=== PATIENT | female | born 1995 | race Two or more races ===

== ENCOUNTER 2019-03-24 21:29 | Emergency (ER) | payer OTHER ==
[2019-03-25] MEDS ORDERED: PHENAGIL TABLE1 EACH PO (06:15)
[2019-03-25] MEDS ORDERED: ZITHROMAX500 MG PO ×2 (06:16→06:26)
== END 2019-03-25 06:36 | disposition home or self-care (01) ==
LOC: ER 21:29
DX: J06.9 Acute upper respiratory infection, unspecified (principal); B34.9 Viral infection, unspecified